=== PATIENT | male | born 1940 | race Caucasian/White ===

== ENCOUNTER → 2020-10-21 14:26 | Outpatient (CLI) | payer MEDICARE, SELFPAY ==
[2020-10-21] MEDS: COVID-19 VACC, Ad26(JANSSEN)/PF 0.5 ML IM (14:38)
== END ==
PROVIDERS: Visit Provider Internal Medicine
DX: Z23 Encounter for immunization (principal)
CPT/HCPCS: 0031A; 91303

== ENCOUNTER → 2020-11-12 12:17 | Outpatient (CLI) | payer OTHER, SELFPAY ==
[2020-11-12] MEDS: COVID-19 VACC #1, MRNA(MOD) 100 MCG/0.5 ML VIAL IM (12:46)
== END ==
PROVIDERS: Visit Provider Internal Medicine
DX: Z23 Encounter for immunization (principal)
CPT/HCPCS: 0011A; 91301

== ENCOUNTER → 2020-12-10 09:09 | Outpatient (CLI) | payer OTHER, SELFPAY ==
[2020-12-10] MEDS: COVID-19 VACC #2, MRNA(MOD) 100 MCG/0.5 ML VIAL IM (09:14)
== END ==
PROVIDERS: Visit Provider Internal Medicine
DX: Z23 Encounter for immunization (principal)
CPT/HCPCS: 0012A; 91301

== ENCOUNTER → 2025-05-08 12:30 | Outpatient (CLI) | payer OTHER, SELFPAY | LOC: LAB 12:35 | PROVIDERS: PCP Family Medicine; Visit Provider Family Medicine | DX: N50.819 Testicular pain, unspecified (principal) | CPT/HCPCS: 87086 ==

== ENCOUNTER → 2025-05-16 15:02 | Outpatient (CLI) | payer OTHER, SELFPAY ==
--- NOTE | 2025-05-16 15:04 | DI.US.S_ITS ---
PROCEDURE: US SCROTUM INDICATIONS: testicle pain TECHNIQUE: Real-time scanning was performed of the scrotum and testicles, with image documentation. Color and pulse Doppler interrogation was performed of both testicles. COMPARISON: None. FINDINGS: Right: Testicle is normal in size at 4.3 x 2 x 3.4 cm, and homogenous in echotexture. Epididymis is normal in overall size and morphology. There is a small right- sided hydrocele. No varicoceles. Overlying scrotal skin is normal in thickness. Left: Testicle is normal in size at 4.2 x 2 x 3 cm, and homogeneous in echotexture. Epididymis is normal in overall size and morphology. No hydrocele or varicoceles. Overlying scrotal skin is normal in thickness. Doppler: Color and pulse Doppler demonstrate normal and symmetric arterial flow in both testicles. IMPRESSION: Normal appearing testicles, without masses or abnormal vascularity. Small right-sided hydrocele. Dictated by: Kryie Hoyt M.D. on 05/16/2025 at 14:41 Approved by: Kyrie Hoyt M.D. on 05/16/2025 at 14:42
== END ==
LOC: US 15:03
PROVIDERS: PCP Family Medicine; Referring Provider Family Medicine; Visit Provider Family Medicine
DX: N50.812 Left testicular pain (principal); N43.3 Hydrocele, unspecified
CPT/HCPCS: 76870; 93976